=== PATIENT | female | born 1980 | race Hispanic/Latino ===

== ENCOUNTER → 2022-01-05 | Day surgery (SDC) | payer MEDICAID ==
[~2022-01-05] MED LIST: Acetaminophen 500 MG TAB ONE; Acetaminophen 500 MG TAB PO SCH; Iron Sucrose Complex 500 MG in Sodium Chloride 0.9% 250 ML 250 ML IVPB SCH
== END ==
LOC: CSHSDC 08:06
PROVIDERS: ATTEND Obstetrics & Gynecology
DX: O99.019 Anemia complicating pregnancy, unspecified trimester (principal); D64.9 Anemia, unspecified; Z3A.00 Weeks of gestation of pregnancy not specified
CPT/HCPCS: J1756; J7050

== ENCOUNTER 2022-04-08 00:28 | Inpatient (IN) | payer OTHER, SELFPAY ==
[2022-04-08 01:05] VITALS: BMI 26.3
[2022-04-08] MEDS ORDERED: hydrALAZINE 20 MG/ML VIAL SLOW IVP PRN ×2 (01:20→05:17)
[2022-04-08] MEDS ORDERED: Diphenoxylate HCl/Atropine Tablet PO PRN (01:20)
[2022-04-08] MEDS ORDERED: Misoprostol 200 MCG TAB PR PRN (01:20)
[2022-04-08] MEDS ORDERED: Promethazine HCl 25 MG/ML VIAL IM PRN ×2 (01:20→05:17)
[2022-04-08] MEDS ORDERED: Lidocaine 1% (PF) 30 ML VIAL SC PRN (01:20)
[2022-04-08] MEDS ORDERED: Acetaminophen 500 MG TAB PO PRN (01:20)
[2022-04-08] MEDS ORDERED: Ibuprofen 800 MG TAB PO PRN (01:20)
[2022-04-08] MEDS ORDERED: Docusate 100 MG CAP PO PRN (01:20)
[2022-04-08] MEDS ORDERED: Ondansetron PF 4 MG/2 ML Vial IVP PRN ×2 (01:20→05:17)
[2022-04-08] MEDS ORDERED: Carboprost 250 MCG/ML AMP IM PRN (01:20)
[2022-04-08] MEDS ORDERED: Methylergonovine 0.2 MG/ML VIAL IM PRN ×2 (01:20→05:17)
[2022-04-08] MEDS ORDERED: Lactated Ringer's 1,000 ML IV SCH (01:30)
[2022-04-08] MEDS ORDERED: NS w/ Oxytocin 30 units 500 ML IV SCH ×3 (01:30→05:17)
[2022-04-08 02:15] LABS: Hemoglobin 12.1 g/dL (12.0-15.5); Mean Corpuscular HGB CONC 33.6 g/dL (32.0-36.0); Mean Corpuscular Hemoglobin 28.5 pg (27.0-33.0); Mean Corpuscular Volume 84.9 fl (81.6-98.3); Mean Platelet Volume 10.9 fl (7.4-10.4); Platelet Count 269 10x3/uL (150-450); RBC Distribution Width 16.2 % (11.5-14.5); Red Blood Cell (RBC) Count 4.24 10x6/uL (3.90-5.03); White Blood Cell (WBC) Count 11.7 10x3/uL (3.5-10.5)
[2022-04-08 02:48] LABS: HBSAg Index 0.17 S/CO (0-0.99); Hep B Surf Ag Non-Reactive S/CO (NonReactive); Syphilis Antibody Nonreactive (Nonreactive); Syphilis Antibody Index 0.06 S/CO (<1.00 Non-Reactive)
[2022-04-08] MEDS ORDERED: Misoprostol 200 MCG TAB VAG PRN (05:17)
[2022-04-08] MEDS ORDERED: Lanolin Ointment 7 GM TUBE TOP PRN (05:17)
[2022-04-08] MEDS ORDERED: diphenhydrAMINE 25 MG CAP PO PRN (05:17)
[2022-04-08] MEDS ORDERED: Milk Of Magnesia 30 ML UDCUP PO PRN (05:17)
[2022-04-08] MEDS ORDERED: Boostrix 0.5 ML (Tdap) VIAL (>/=7 yrs of age) IM ONE (05:17)
[2022-04-08] MEDS ORDERED: Bisacodyl 10 MG SUPP PR PRN (05:17)
[2022-04-08] MEDS ORDERED: Benzocaine-Menthol 82.5 ML CAN TOP PRN (05:17)
[2022-04-08] MEDS ORDERED: Preparation H Ointment 28 GM TUBE PR PRN (05:17)
[2022-04-08] MEDS: Docusate 100 MG CAP PO SCH ×2 (09:02→21:25)
[2022-04-08] MEDS: Ibuprofen 800 MG TAB PO SCH ×2 (09:02→17:39)
[2022-04-08] MEDS: Prenatal Vitamin 1 TAB PO SCH (09:02)
[2022-04-08] MEDS: Ferrous Sulfate 325 MG TAB PO SCH ×2 (09:04→17:47)
[2022-04-09] MEDS: Ibuprofen 800 MG TAB PO SCH ×2 (00:55→09:15)
[2022-04-09 07:47] VITALS: BP 111/70; TEMP 97.9
[2022-04-09] MEDS: Prenatal Vitamin 1 TAB PO SCH (09:15)
[2022-04-09] MEDS: Docusate 100 MG CAP PO SCH (09:15)
[2022-04-09] MEDS: Ferrous Sulfate 325 MG TAB PO SCH (09:16)
== END 2022-04-09 15:50 | disposition home or self-care (01) | DRG 807 ==
LOC: CSHLD/OP 00:28 → CSHLD 01:19 → CSHPP 05:44
PROVIDERS: ADMIT Family Medicine; ATTEND Family Medicine
PROC: 10E0XZZ Delivery of Products of Conception, External Approach (ICD-10-PCS; principal; 2022-04-08)
DX: O42.02 Full-term premature rupture of membranes, onset of labor within 24 hours of rupture (principal); Z37.0 Single live birth; D64.9 Anemia, unspecified; O69.81X0 Labor and delivery complicated by cord around neck, without compression, not applicable or unspecified; O99.02 Anemia complicating childbirth; Z3A.39 39 weeks gestation of pregnancy
CPT/HCPCS: 85027; 86780; 86850; 86900; 86901; 87340; 99285; J2590